=== PATIENT | male | born 2000 | race Caucasian/White ===

== ENCOUNTER 2022-05-01 09:49 | Emergency (ER) | payer OTHER ==
[~2022-05-01] VITALS: Ht 182.9 cm; Wt 93.2 kg
[2022-05-01 09:54] VITALS: TEMP 98.4
[2022-05-01 11:07] VITALS: BP 117/67; PULSE 80
== END 2022-05-01 11:10 | disposition home or self-care (01) ==
LOC: COL.ER 09:49
DX: S61.211A Laceration without foreign body of left index finger without damage to nail, initial encounter (principal); W26.0XXA Contact with knife, initial encounter; Y92.59 Other trade areas as the place of occurrence of the external cause; Y99.0 Civilian activity done for income or pay